=== PATIENT | male | born 1965 | race Caucasian/White ===

== ENCOUNTER 2019-05-22 07:03 | Emergency (ER) | payer OTHER ==
[~2019-05-22] VITALS: Ht 180.3 cm; Wt 103.9 kg
[2019-05-22 07:09] VITALS: BP 155/101
[2019-05-22] MEDS ORDERED: DICLOFENAC SODI25 MG PO (07:16)
== END 2019-05-22 08:16 | disposition home or self-care (01) ==
LOC: ER 07:03
DX: S51.811A Laceration without foreign body of right forearm, initial encounter (principal); W26.8XXA Contact with other sharp object(s), not elsewhere classified, initial encounter; Y93.89 Activity, other specified; Y92.89 Other specified places as the place of occurrence of the external cause; Y99.8 Other external cause status